=== PATIENT | male | born 1985 | race Caucasian/White ===

== ENCOUNTER → 2022-08-14 | Outpatient (REF) | payer BC ==
[~2022-08-14] MED LIST: INSULANT SC; INSULIN LANTUS SC; hum; humalog insulin
== END ==
LOC: M LAB REF 09:57
PROVIDERS: ATTEND Nurse Practitioner Family
DX: J02.9 Acute pharyngitis, unspecified (principal)

== ENCOUNTER → 2022-10-05 | Outpatient (CLI) | payer BC | LOC: M CARPUL 10:06 | PROVIDERS: ATTEND Physician Assistant Medical | DX: R01.1 Cardiac murmur, unspecified (principal); I34.0 Nonrheumatic mitral (valve) insufficiency ==